=== PATIENT | male | born 1975 | race Caucasian/White ===

== ENCOUNTER 2024-06-17 06:03 | Day surgery (SDC) | payer BC ==
[2024-06-17 06:33] VITALS: RESP 18
[2024-06-17] MEDS: Lactated Ringers 1,000 ML IV SCH (06:36)
[2024-06-17] MEDS ORDERED: DIPRIVAN 200 MG/20 ML IV ONE ×2 (08:06→10:48)
[2024-06-17] MEDS ORDERED: Versed 2 MG/2 ML Injection ONE (08:06)
[2024-06-17 08:32] VITALS: TEMP 96.8
[2024-06-17 08:45] VITALS: BP 106/79; PULSE 66; O2SAT 100
--- NOTE | 2024-06-18 07:55 | OP ---
SURGERY DATE/TIME: 06/17/2024 [id number] PREOPERATIVE DIAGNOSIS: Screening exam. POSTOPERATIVE DIAGNOSIS: Normal colon. PROCEDURE: Colonoscopy. SURGEON: Wayne Tuttle MD. ANESTHESIA: Medications were given by the anesthesia department. INDICATIONS: The patient is a 49-year-old white male patient presenting now for screening colonoscopy. He was appraised of the risks of the procedure including risk of perforation, phlebitis, untoward reaction to medication, bleeding, and missed lesions. The patient verbalized his understanding and desire to have procedure performed. DESCRIPTION OF PROCEDURE AND FINDINGS: The patient was given medication by the anesthesia department and had continuous pulse oximetry, ECG monitoring, and intermittent blood pressure monitoring during the examination. He was placed in the left lateral decubitus position. Digital rectal examination was performed and revealed normal anal sphincter tone, no masses, and a normal prostate. The flexible Olympus videocolonoscope was used to intubate the rectum. A view of the colon was developed sequentially to the cecum. Upon insertion and withdrawal, including retroflexed view in the rectum, no mucosal lesions were encountered. The scope was removed. The patient tolerated the procedure well and was sent back to outpatient recovery in good condition.
== END 2024-06-17 08:53 | disposition home or self-care (01) ==
LOC: SDC 06:03
PROVIDERS: ATTEND Family Medicine
DX: Z12.11 Encounter for screening for malignant neoplasm of colon (principal); E11.9 Type 2 diabetes mellitus without complications
CPT/HCPCS: 82947; J2250; J2704